=== PATIENT | male | born 1970 | race Caucasian/White ===

== ENCOUNTER 2021-09-12 10:36 | Inpatient (IN) | payer OTHER ==
[~2021-09-12] VITALS: Ht 154.9 cm; Wt 54.0 kg
[2021-09-12] MEDS ORDERED: MIDO2.5T PO (10:59)
[2021-09-12] MEDS ORDERED: SIMV-46 PO (10:59)
[2021-09-12] MEDS ORDERED: SEVE800T8 PO (10:59)
[2021-09-12] MEDS ORDERED: XALAO EACHEYE (10:59)
[2021-09-12] MEDS ORDERED: OMEP40CA20 PO (10:59)
[2021-09-12] MEDS ORDERED: LACT10SO7 PO (10:59)
[2021-09-12] MEDS ORDERED: RENA VITE (10:59)
[2021-09-12] MEDS ORDERED: GLIP5TAB12 PO (10:59)
[2021-09-12] MEDS ORDERED: PIPERACILLIN/TAZ 3.375G PREMIX 50 ML IV ONE (11:15)
[2021-09-12] MEDS ORDERED: VANCOMYCIN 1G PREMIX 200 ML IV ONE (11:15)
[2021-09-12 11:54] LABS: BASOPHILS % 0.7 % (0.0-2.0); EOSINOPHILS % 3.2 % (0.0-5.0); HEMATOCRIT. 31.3 % (42.0-52.0); LYMPHOCYTES % 24.3 % (20.0-50.0); MEAN CORPUSCULAR HEMOGLOBIN 28.4 pg (28.0-32.0); MEAN CORPUSCULAR VOLUME 89.3 fL (80.0-94.0); MEAN PLATELET VOLUME 7.6 fl (7.4-10.4); MONOCYTES % 8.4 % (2.0-8.0); NEUTROPHILS % 63.4 % (40.0-76.0); PLATELET 132 x1000/uL (130-400); RED CELL DISTRIBUTION WIDTH 17.3 % (11.6-14.6)
[2021-09-12 12:02] LABS: CHLORIDE 109 mEq/L (98-107)
[2021-09-12 12:18] LABS: INR 1.2; PARTIAL THROMBOPLASTIN TIME 34.2 sec (23.4-31.0); PROTHROMBIN TIME 12.7 sec (9.6-11.0)
[2021-09-12 12:29] LABS: CLARITY URINE CLEAR (CLEAR); COLOR URINE YELLOW (YELLOW); KETONES URINE NEGATIVE (NEGATIVE); LEUKOCYTE ESTERASE URINE TRACE (NEGATIVE); NITRITE URINE NEGATIVE (NEGATIVE); OCCULT BLOOD URINE NEGATIVE (NEGATIVE); PH URINE 8.5 (4.5-8.0); PROTEIN URINE 2+ (NEGATIVE); SPECIFIC GRAVITY URINE 1.013 (1.005-1.030); UROBILINOGEN URINE 0.2 E.U./dL (0.2-1.0)
[2021-09-12] MEDS ORDERED: IPRATROPIUM/ALBUTEROL 0.5-3(2.5)MG/3ML NEB HHN PRN (14:15)
[2021-09-12] MEDS ORDERED: DOCUSATE SODIUM 100MG CAPSULE PO PRN (14:15)
[2021-09-12] MEDS ORDERED: ONDANSETRON HCL 4MG/2ML INJ IV PRN (14:15)
[2021-09-12] MEDS ORDERED: ACETAMINOPHEN 325MG TABLET PO PRN (14:15)
[2021-09-12] MEDS ORDERED: LORAZEPAM 0.5MG TABLET PO PRN (14:15)
[2021-09-12] MEDS ORDERED: CLONIDINE 0.1MG TABLET PO PRN (14:15)
[2021-09-12] MEDS ORDERED: NALOXONE HCL 0.4MG/ML VIAL IV PRN (14:45)
[2021-09-12] MEDS: ENOXAPARIN 60MG/0.6ML SYR SUBCUT SCH (15:15)
[2021-09-12] MEDS ORDERED: IOHEXOL-350 100 ML BOTTLE ONE (17:02)
[2021-09-12 22:21] LABS: HEPATITIS B SURFACE ANTIGEN NEGATIVE
[2021-09-13] MEDS: ACETAMINOPHEN 325MG TABLET PO PRN (00:41)
[2021-09-13 03:39] LABS: BASOPHILS % 0.8 % (0.0-2.0); EOSINOPHILS % 3.1 % (0.0-5.0); HEMATOCRIT. 28.8 % (42.0-52.0); HEMOGLOBIN. 9.4 g/dL (14.0-18.0); LYMPHOCYTES % 22.6 % (20.0-50.0); MEAN CORPUSCULAR HEMOGLOBIN 29.2 pg (28.0-32.0); MEAN CORPUSCULAR VOLUME 89.1 fL (80.0-94.0); MEAN PLATELET VOLUME 7.3 fl (7.4-10.4); MONOCYTES % 11.4 % (2.0-8.0); NEUTROPHILS % 62.1 % (40.0-76.0); PLATELET 116 x1000/uL (130-400); RED BLOOD CELL COUNT 3.24 mill/uL (4.7-6.1); RED CELL DISTRIBUTION WIDTH 16.7 % (11.6-14.6)
[2021-09-13 03:53] LABS: PHOSPHORUS 3.2 mg/dL (2.5-4.9)
[2021-09-13] MEDS: HYDROCODONE/ACETAMINOPHEN 5/325MG TABLET PO PRN (06:35)
[2021-09-13 08:00] VITALS: BP 132/57
[2021-09-13] MEDS ORDERED: DEXTROSE 50% WATER 50ML SYRINGE IV PRN (09:30)
[2021-09-13 10:15] VITALS: BP 132/57
[2021-09-13] MEDS ORDERED: ASPI-1497 PO (10:39)
[2021-09-13] MEDS ORDERED: T3 PO (10:40)
[2021-09-13] MEDS ORDERED: BRIM10DR16 OP (10:43)
[2021-09-13] MEDS ORDERED: DORZ10DR8 EACHEYE (10:44)
[2021-09-13] MEDS ORDERED: FOLI-43 PO (10:48)
[2021-09-13] MEDS ORDERED: [UNRECOGNIZED DRUG - CODE] IN (10:51)
[2021-09-13] MEDS ORDERED: LACT10SO7 PO (10:52)
[2021-09-13] MEDS ORDERED: LATA2.5D4 EACHEYE (10:53)
[2021-09-13 12:00] VITALS: BP 98/50
[2021-09-13] MEDS: INSULIN LISPRO 100 UNITS/ML SUBCUT SCH ×3 (12:50→21:39)
[2021-09-13] MEDS: BLOOD SUGAR DIAGNOSTIC STRIP TEST SCH ×3 (12:52→21:39)
[2021-09-13] MEDS: ENOXAPARIN 60MG/0.6ML SYR SUBCUT SCH (15:00)
[2021-09-13 16:00] VITALS: BP 129/67
[2021-09-13 20:00] VITALS: BP 130/69
[2021-09-13] MEDS ORDERED: CEFEPIME 1,000 MG in DEXTROSE 5% WATER 50 ML IV SCH (21:00)
[2021-09-14] VITALS (7 sets, daily range): BP systolic 101–149; BP diastolic 54–79
[2021-09-14] MEDS: HYDROCODONE/ACETAMINOPHEN 5/325MG TABLET PO PRN (04:17)
[2021-09-14] MEDS: BLOOD SUGAR DIAGNOSTIC STRIP TEST SCH ×4 (06:40→21:00)
[2021-09-14 06:51] LABS: EOSINOPHILS % 2.8 % (0.0-5.0); HEMATOCRIT. 25.1 % (42.0-52.0); HEMOGLOBIN. 8.3 g/dL (14.0-18.0); LYMPHOCYTES % 25.4 % (20.0-50.0); MEAN CORPUSCULAR HEMOGLOBIN 29.5 pg (28.0-32.0); MEAN CORPUSCULAR VOLUME 89.2 fL (80.0-94.0); MEAN PLATELET VOLUME 7.7 fl (7.4-10.4); MONOCYTES % 10.1 % (2.0-8.0); NEUTROPHILS % 60.7 % (40.0-76.0); PLATELET 108 x1000/uL (130-400); RED BLOOD CELL COUNT 2.81 mill/uL (4.7-6.1); RED CELL DISTRIBUTION WIDTH 16.8 % (11.6-14.6)
[2021-09-14 07:15] LABS: PHOSPHORUS 3.7 mg/dL (2.5-4.9)
[2021-09-14] MEDS: INSULIN LISPRO 100 UNITS/ML SUBCUT SCH ×4 (07:22→21:00)
[2021-09-14] MEDS ORDERED: LIDOCAINE HCL 1% 20ML VIAL (Pyxis) INJ ONE (08:30)
[2021-09-14] MEDS ORDERED: SODIUM BICARBONATE 4% (2.4MEQ) 5ML VIAL IV ONE (08:30)
[2021-09-14] MEDS: LACTULOSE 20G/30ML UDC PO SCH ×2 (13:58→22:00)
[2021-09-14] MEDS: ENOXAPARIN 60MG/0.6ML SYR SUBCUT SCH (15:00)
[2021-09-14] MEDS ORDERED: VANCOMYCIN 750 MG in DEXT 5% WATER 250 ML IV NR (15:00)
[2021-09-14] MEDS: MEROPENEM 1,000 MG in SODIUM CHLORIDE 0.9% 100 ML IV SCH (22:10)
[2021-09-15] VITALS: BP 115/65
[2021-09-15 04:00] VITALS: BP 130/57
[2021-09-15] MEDS: LACTULOSE 20G/30ML UDC PO SCH ×4 (05:41→21:05)
[2021-09-15 06:39] LABS: BASOPHILS % 1.1 % (0.0-2.0); EOSINOPHILS % 3.1 % (0.0-5.0); HEMATOCRIT. 24.6 % (42.0-52.0); LYMPHOCYTES % 22.6 % (20.0-50.0); MEAN CORPUSCULAR VOLUME 89.4 fL (80.0-94.0); MEAN PLATELET VOLUME 8.2 fl (7.4-10.4); MONOCYTES % 10.5 % (2.0-8.0); NEUTROPHILS % 62.7 % (40.0-76.0); PLATELET 98 x1000/uL (130-400); RED BLOOD CELL COUNT 2.75 mill/uL (4.7-6.1); RED CELL DISTRIBUTION WIDTH 17.2 % (11.6-14.6)
[2021-09-15] MEDS: BLOOD SUGAR DIAGNOSTIC STRIP TEST SCH ×4 (07:20→21:05)
[2021-09-15] MEDS: INSULIN LISPRO 100 UNITS/ML SUBCUT SCH ×4 (07:50→21:09)
[2021-09-15 08:00] VITALS: BP 91/43
[2021-09-15] MEDS ORDERED: IOHEXOL-300 100 ML BOTTLE ONE (14:00)
[2021-09-15] MEDS ORDERED: LIDOCAINE HCL 1% 30ML VIAL (10MG/ML) ONE (14:00)
[2021-09-15] MEDS ORDERED: MIDAZOLAM HCL 2 MG/2 ML VIAL ONE (14:00)
[2021-09-15] MEDS ORDERED: FENTANYL CITRATE/PF 50MCG/ML 2ML VIAL ONE (14:00)
[2021-09-15] MEDS ORDERED: IODIXANOL 320MG/ML 100 ML BOTTLE IV ONE (14:01)
[2021-09-15] MEDS: ENOXAPARIN 60MG/0.6ML SYR SUBCUT SCH (15:00)
[2021-09-15] MEDS: CLOPIDOGREL 75MG TABLET PO SCH (15:21)
[2021-09-15 16:00] VITALS: BP 116/59
[2021-09-15 20:00] VITALS: BP 120/53
[2021-09-15] MEDS: MEROPENEM 1,000 MG in SODIUM CHLORIDE 0.9% 100 ML IV SCH (21:08)
[2021-09-16] VITALS: BP 128/54
[2021-09-16 04:00] VITALS: BP 117/51
[2021-09-16 06:53] LABS: BASOPHILS % 0.7 % (0.0-2.0); HEMATOCRIT. 23.7 % (42.0-52.0); HEMOGLOBIN. 7.8 g/dL (14.0-18.0); LYMPHOCYTES % 19.6 % (20.0-50.0); MEAN CORPUSCULAR HEMOGLOBIN 29.6 pg (28.0-32.0); MEAN CORPUSCULAR VOLUME 89.5 fL (80.0-94.0); MEAN PLATELET VOLUME 8.3 fl (7.4-10.4); MONOCYTES % 11.2 % (2.0-8.0); NEUTROPHILS % 65.5 % (40.0-76.0); PLATELET 92 x1000/uL (130-400); RED BLOOD CELL COUNT 2.65 mill/uL (4.7-6.1); RED CELL DISTRIBUTION WIDTH 17.4 % (11.6-14.6)
[2021-09-16] MEDS: INSULIN LISPRO 100 UNITS/ML SUBCUT SCH ×4 (07:50→22:01)
[2021-09-16] MEDS: BLOOD SUGAR DIAGNOSTIC STRIP TEST SCH ×4 (07:50→21:00)
[2021-09-16 08:00] VITALS: BP 120/56
[2021-09-16] MEDS: CLOPIDOGREL 75MG TABLET PO SCH (08:03)
[2021-09-16 08:17] LABS: PHOSPHORUS 5.4 mg/dL (2.5-4.9)
[2021-09-16 12:00] VITALS: BP 133/67
[2021-09-16] MEDS ORDERED: SODIUM POLYSTYRENE SULFONATE 15 G/60 ML BOT PO NR (12:00)
[2021-09-16] MEDS: LACTULOSE 20G/30ML UDC PO SCH ×2 (14:30→22:02)
[2021-09-16] MEDS: ENOXAPARIN 60MG/0.6ML SYR SUBCUT SCH (15:00)
[2021-09-16 16:00] VITALS: BP 150/60
[2021-09-16 20:00] VITALS: BP 150/70
[2021-09-16] MEDS ORDERED: LEVO750T46 PO ×2 (21:22)
[2021-09-16] MEDS: MEROPENEM 1,000 MG in SODIUM CHLORIDE 0.9% 100 ML IV SCH (22:00)
[2021-09-17] VITALS: BP 107/50
[2021-09-17 04:00] VITALS: BP 120/59
[2021-09-17] MEDS: LACTULOSE 20G/30ML UDC PO SCH ×3 (06:00→21:03)
[2021-09-17] MEDS: BLOOD SUGAR DIAGNOSTIC STRIP TEST SCH ×4 (07:20→20:20)
[2021-09-17] MEDS: INSULIN LISPRO 100 UNITS/ML SUBCUT SCH ×4 (07:50→20:56)
[2021-09-17 08:00] VITALS: BP 118/58
[2021-09-17 08:16] LABS: BASOPHILS % 0.5 % (0.0-2.0); EOSINOPHILS % 2.8 % (0.0-5.0); HEMATOCRIT. 22.4 % (42.0-52.0); HEMOGLOBIN. 7.5 g/dL (14.0-18.0); LYMPHOCYTES % 19.1 % (20.0-50.0); MEAN CORPUSCULAR VOLUME 89.6 fL (80.0-94.0); MEAN PLATELET VOLUME 8.1 fl (7.4-10.4); MONOCYTES % 13.6 % (2.0-8.0); PLATELET 88 x1000/uL (130-400); RED CELL DISTRIBUTION WIDTH 17.3 % (11.6-14.6)
[2021-09-17] MEDS: CLOPIDOGREL 75MG TABLET PO SCH (08:24)
[2021-09-17 09:04] LABS: PHOSPHORUS 5.1 mg/dL (2.5-4.9)
[2021-09-17] MEDS: ENOXAPARIN 60MG/0.6ML SYR SUBCUT SCH (15:00)
[2021-09-17] MEDS ORDERED: CLOP-31 MT (15:18)
[2021-09-17 17:46] VITALS: BP 122/66
[2021-09-17 20:00] VITALS: BP 143/69
[2021-09-17] MEDS ORDERED: VANCOMYCIN 500MG PREMIX 100 ML IV NR (20:00)
[2021-09-17] MEDS: MEROPENEM 1,000 MG in SODIUM CHLORIDE 0.9% 100 ML IV SCH (20:20)
[2021-09-18] VITALS (33 sets, daily range): BP systolic 81–147; BP diastolic 33–82
[2021-09-18] MEDS: LACTULOSE 20G/30ML UDC PO SCH ×3 (06:20→22:15)
[2021-09-18] MEDS: INSULIN LISPRO 100 UNITS/ML SUBCUT SCH ×4 (06:26→21:00)
[2021-09-18] MEDS: BLOOD SUGAR DIAGNOSTIC STRIP TEST SCH ×4 (06:26→21:00)
[2021-09-18 07:37] LABS: BASOPHILS % 0.4 % (0.0-2.0); EOSINOPHILS % 1.8 % (0.0-5.0); HEMATOCRIT. 23.4 % (42.0-52.0); HEMOGLOBIN. 7.8 g/dL (14.0-18.0); MEAN CORPUSCULAR HEMOGLOBIN 29.8 pg (28.0-32.0); MEAN CORPUSCULAR VOLUME 89.4 fL (80.0-94.0); MEAN PLATELET VOLUME 7.7 fl (7.4-10.4); MONOCYTES % 13.1 % (2.0-8.0); NEUTROPHILS % 68.7 % (40.0-76.0); PLATELET 86 x1000/uL (130-400); RED BLOOD CELL COUNT 2.62 mill/uL (4.7-6.1); RED CELL DISTRIBUTION WIDTH 17.5 % (11.6-14.6)
[2021-09-18 08:02] LABS: PHOSPHORUS 4.4 mg/dL (2.5-4.9)
[2021-09-18 10:02] LABS: BG BASE EXCESS -3.3 mmol/L (-2.0-2.0); BG CARBOXYHEMOGLOBIN 0.7 % (0.5-1.5); BG DEOXYHEMOGLOBIN 2.3 % (0.0-5.0); BG HCO3 ACT 18.1 mmol/L (22.0-26.0); BG METHEMOGLOBIN 0.2 % (0.0-1.5); BG OXYGEN SATURATION 97.7 % (92.0-98.5); BG OXYHEMOGLOBIN 96.8 % (94.0-97.0); BG PH 7.553 (7.350-7.450); BG PO2 105.8 mmHg (75.0-100.0); BG SAMPLE SITE RIGHT BRACHIAL; BG TOTAL HEMOGLOBIN 8.3 g/dL (12.0-18.0); BG VENT MODE NASAL CANNULA
[2021-09-18] MEDS ORDERED: LACTULOSE 300 ML in WATER FOR IRRIGATION,STERILE 700 ML IR NR (13:00)
[2021-09-18] MEDS: CLOPIDOGREL 75MG TABLET PO SCH (13:45)
[2021-09-18 14:04] LABS: BG BASE EXCESS -4.1 mmol/L (-2.0-2.0); BG CARBOXYHEMOGLOBIN 0.1 % (0.5-1.5); BG DEOXYHEMOGLOBIN 0.8 % (0.0-5.0); BG FRACTION INSPIRED OXYGEN 50; BG HCO3 ACT 18.6 mmol/L (22.0-26.0); BG METHEMOGLOBIN 0.3 % (0.0-1.5); BG OXYGEN SATURATION 99.2 % (92.0-98.5); BG OXYHEMOGLOBIN 98.8 % (94.0-97.0); BG PCO2 25.8 mmHg (35.0-45.0); BG PEEP (cmH2O) 0 cmH2O; BG PH 7.476 (7.350-7.450); BG PO2 206.1 mmHg (75.0-100.0); BG SAMPLE SITE RIGHT RADIAL; BG TOTAL HEMOGLOBIN 8.8 g/dL (12.0-18.0); BG VENT MODE VENT - AC/VC
[2021-09-18] MEDS: ENOXAPARIN 60MG/0.6ML SYR SUBCUT SCH (14:58)
[2021-09-18] MEDS ORDERED: NOREPINEPHRINE 8MG/250ML PMX 250 ML IV PRN (15:30)
[2021-09-18] MEDS ORDERED: NOREPINEPHRINE 8 MG in DEXTROSE 5% WATER 250 ML IV PRN (15:45)
[2021-09-18] MEDS: MEROPENEM 1,000 MG in SODIUM CHLORIDE 0.9% 100 ML IV SCH (20:46)
[2021-09-19] VITALS (41 sets, daily range): BP systolic 75–144; BP diastolic 59–95
[2021-09-19 06:18] LABS: BASOPHILS % 0.6 % (0.0-2.0); EOSINOPHILS % 3.1 % (0.0-5.0); HEMATOCRIT. 26.5 % (42.0-52.0); HEMOGLOBIN. 8.5 g/dL (14.0-18.0); LYMPHOCYTES % 17.2 % (20.0-50.0); MEAN CORPUSCULAR HEMOGLOBIN 28.9 pg (28.0-32.0); MEAN CORPUSCULAR VOLUME 89.7 fL (80.0-94.0); MEAN PLATELET VOLUME 7.6 fl (7.4-10.4); MONOCYTES % 13.8 % (2.0-8.0); NEUTROPHILS % 65.3 % (40.0-76.0); PLATELET 108 x1000/uL (130-400); RED BLOOD CELL COUNT 2.96 mill/uL (4.7-6.1); RED CELL DISTRIBUTION WIDTH 17.8 % (11.6-14.6)
[2021-09-19 06:28] LABS: PHOSPHORUS 6.1 mg/dL (2.5-4.9)
[2021-09-19] MEDS: LACTULOSE 20G/30ML UDC PO SCH ×3 (06:33→21:53)
[2021-09-19] MEDS: INSULIN LISPRO 100 UNITS/ML SUBCUT SCH ×4 (06:33→21:00)
[2021-09-19] MEDS: BLOOD SUGAR DIAGNOSTIC STRIP TEST SCH ×4 (06:33→21:51)
[2021-09-19] MEDS: CLOPIDOGREL 75MG TABLET PO SCH (09:41)
[2021-09-19 09:58] LABS: BG BASE EXCESS -6.2 mmol/L (-2.0-2.0); BG FRACTION INSPIRED OXYGEN 30; BG METHEMOGLOBIN 0.5 % (0.0-1.5); BG OXYHEMOGLOBIN 97.5 % (94.0-97.0); BG PCO2 21.3 mmHg (35.0-45.0); BG PH 7.493 (7.350-7.450); BG PO2 168.2 mmHg (75.0-100.0); BG SAMPLE SITE RIGHT RADIAL; BG TOTAL HEMOGLOBIN 8.3 g/dL (12.0-18.0)
[2021-09-19] MEDS: ACETAMINOPHEN 325MG TABLET PO PRN ×2 (14:18→22:41)
[2021-09-19] MEDS ORDERED: EPOETIN ALFA-EPBX 10,000 UNIT/ML VIAL SUBCUT SCH (21:00)
[2021-09-19] MEDS: MEROPENEM 1,000 MG in SODIUM CHLORIDE 0.9% 100 ML IV SCH (21:36)
[2021-09-20] VITALS (31 sets, daily range): BP systolic 85–143; BP diastolic 46–101
[2021-09-20 05:13] LABS: BASOPHILS % 0.6 % (0.0-2.0); EOSINOPHILS % 6.3 % (0.0-5.0); HEMATOCRIT. 24.9 % (42.0-52.0); LYMPHOCYTES % 17.2 % (20.0-50.0); MEAN CORPUSCULAR HEMOGLOBIN 28.8 pg (28.0-32.0); MEAN CORPUSCULAR VOLUME 89.6 fL (80.0-94.0); MEAN PLATELET VOLUME 7.9 fl (7.4-10.4); MONOCYTES % 13.6 % (2.0-8.0); NEUTROPHILS % 62.3 % (40.0-76.0); PLATELET 90 x1000/uL (130-400); RED BLOOD CELL COUNT 2.78 mill/uL (4.7-6.1); RED CELL DISTRIBUTION WIDTH 17.4 % (11.6-14.6)
[2021-09-20 05:16] LABS: PHOSPHORUS 5.3 mg/dL (2.5-4.9)
[2021-09-20] MEDS: LACTULOSE 20G/30ML UDC PO SCH ×3 (06:00→21:04)
[2021-09-20] MEDS: INSULIN LISPRO 100 UNITS/ML SUBCUT SCH ×4 (07:00→21:07)
[2021-09-20] MEDS: BLOOD SUGAR DIAGNOSTIC STRIP TEST SCH ×4 (07:29→21:07)
[2021-09-20] MEDS: CLOPIDOGREL 75MG TABLET PO SCH (08:43)
[2021-09-20] MEDS ORDERED: VANCOMYCIN 500MG PREMIX 100 ML IV SCH (12:00)
[2021-09-20] MEDS ORDERED: LATANOPROST 0.005% OPHTH DROPS 2.5ML BOTHEYE SCH (21:00)
[2021-09-21] VITALS: BP 117/59
[2021-09-21 04:00] VITALS: BP 128/59
[2021-09-21] MEDS: BLOOD SUGAR DIAGNOSTIC STRIP TEST SCH ×2 (06:05→11:49)
[2021-09-21] MEDS: LACTULOSE 20G/30ML UDC PO SCH ×2 (06:13→14:00)
[2021-09-21] MEDS: INSULIN LISPRO 100 UNITS/ML SUBCUT SCH ×2 (06:15→13:45)
[2021-09-21 06:30] LABS: BASOPHILS % 0.6 % (0.0-2.0); HEMATOCRIT. 23.8 % (42.0-52.0); HEMOGLOBIN. 7.8 g/dL (14.0-18.0); LYMPHOCYTES % 16.1 % (20.0-50.0); MEAN CORPUSCULAR HEMOGLOBIN 29.5 pg (28.0-32.0); MEAN CORPUSCULAR VOLUME 89.9 fL (80.0-94.0); MEAN PLATELET VOLUME 8.3 fl (7.4-10.4); NEUTROPHILS % 65.3 % (40.0-76.0); PHOSPHORUS 6.9 mg/dL (2.5-4.9); PLATELET 100 x1000/uL (130-400); RED BLOOD CELL COUNT 2.64 mill/uL (4.7-6.1); RED CELL DISTRIBUTION WIDTH 17.1 % (11.6-14.6)
[2021-09-21 08:00] VITALS: BP 104/50
[2021-09-21] MEDS: CLOPIDOGREL 75MG TABLET PO SCH (09:14)
[2021-09-21 12:00] VITALS: BP 122/56
[2021-09-21 15:02] VITALS: BP 122/56
== END 2021-09-21 14:20 | disposition home or self-care (01) | DRG 710 ==
LOC: ER 10:40 → MICUSO 12:37 → EDBEDREQTM 12:44 → EDBEDREQ 12:44 → 6WST 09-13 10:17 → MICUNO 09-18 13:00 → 5WST 09-20 16:46
PROVIDERS: ADMIT Internal Medicine; ATTEND Internal Medicine
PROC: 5A1D70Z Performance of Urinary Filtration, Intermittent, Less than 6 Hours Per Day (ICD-10-PCS; 2021-09-12)
PROC: 0W9G30Z Drainage of Peritoneal Cavity with Drainage Device, Percutaneous Approach (ICD-10-PCS; 2021-09-14)
PROC: 047L3ZZ Dilation of Left Femoral Artery, Percutaneous Approach (ICD-10-PCS; principal; 2021-09-15)
PROC: 04HK33Z Insertion of Infusion Device into Right Femoral Artery, Percutaneous Approach (ICD-10-PCS; 2021-09-15)
PROC: 04HL33Z Insertion of Infusion Device into Left Femoral Artery, Percutaneous Approach (ICD-10-PCS; 2021-09-15)
PROC: B41G1ZZ Fluoroscopy of Left Lower Extremity Arteries using Low Osmolar Contrast (ICD-10-PCS; 2021-09-15)
PROC: 047L3DZ Dilation of Left Femoral Artery with Intraluminal Device, Percutaneous Approach (ICD-10-PCS; 2021-09-15)
PROC: 047S3ZZ Dilation of Left Posterior Tibial Artery, Percutaneous Approach (ICD-10-PCS; 2021-09-15)
PROC: 5A1D70Z Performance of Urinary Filtration, Intermittent, Less than 6 Hours Per Day (ICD-10-PCS; 2021-09-15)
PROC: 5A1D70Z Performance of Urinary Filtration, Intermittent, Less than 6 Hours Per Day (ICD-10-PCS; 2021-09-17)
PROC: 0BH17EZ Insertion of Endotracheal Airway into Trachea, Via Natural or Artificial Opening (ICD-10-PCS; 2021-09-18)
PROC: 5A1945Z Respiratory Ventilation, 24-96 Consecutive Hours (ICD-10-PCS; 2021-09-18)
PROC: 5A1D70Z Performance of Urinary Filtration, Intermittent, Less than 6 Hours Per Day (ICD-10-PCS; 2021-09-19)
DX: A41.9 Sepsis, unspecified organism (principal); J96.00 Acute respiratory failure, unspecified whether with hypoxia or hypercapnia; G93.41 Metabolic encephalopathy; E43 Unspecified severe protein-calorie malnutrition; I70.262 Atherosclerosis of native arteries of extremities with gangrene, left leg; K72.90 Hepatic failure, unspecified without coma; I12.0 Hypertensive chronic kidney disease with stage 5 chronic kidney disease or end stage renal disease; E11.52 Type 2 diabetes mellitus with diabetic peripheral angiopathy with gangrene; K70.31 Alcoholic cirrhosis of liver with ascites; E11.22 Type 2 diabetes mellitus with diabetic chronic kidney disease; D64.9 Anemia, unspecified; M86.8X7 Other osteomyelitis, ankle and foot; N18.6 End stage renal disease; Z20.822 Contact with and (suspected) exposure to COVID-19; E11.69 Type 2 diabetes mellitus with other specified complication; K43.9 Ventral hernia without obstruction or gangrene; E21.1 Secondary hyperparathyroidism, not elsewhere classified; F10.10 Alcohol abuse, uncomplicated; Y90.9 Presence of alcohol in blood, level not specified; Z99.2 Dependence on renal dialysis; Z79.899 Other long term (current) drug therapy; Z88.8 Allergy status to other drugs, medicaments and biological substances; Z89.511 Acquired absence of right leg below knee; Z79.84 Long term (current) use of oral hypoglycemic drugs; Z83.3 Family history of diabetes mellitus; Z82.49 Family history of ischemic heart disease and other diseases of the circulatory system; Z87.891 Personal history of nicotine dependence; Z68.22 Body mass index [BMI] 22.0-22.9, adult
CPT/HCPCS: 36415; 36600; 37226; 37228; 49083; 71045; 73630; 75635; 75710; 76705; 80048; 80053; 80202; 81003; 82040; 82140; 82375; 82805; 82962; 83036; 83605; 83615; 83735; 84100; 84145; 85025; 85347; 85651; 86140; 86705; 86709; 86803; 87077; 87186; 87340; 87426; 92610; 93005; 93922; 94003; 97162; 99285; A6261; C1725; C1760; C1769; C1876; C1887; C1893; C1894; J0692; J0885; J1644; J1650; J1815; J2185; J2250; J2543; J3010; J3370; J3490; J7050; J7060; Q9967

== ENCOUNTER 2021-12-01 20:15 | Inpatient (IN) | payer MEDICAID, OTHER ==
[~2021-12-01] VITALS: Ht 160 cm; Wt 72.6 kg
[~2021-12-01 20:15] MED LIST: ASPI-1497 PO; BRIM10DR16 OP; CLOP-31 MT; DORZ10DR8 EACHEYE; FOLI-43 PO; GLIP5TAB12 PO; LACT10SO7 PO; MIDO2.5T PO; OMEP40CA20 PO; SEVE800T8 PO; SIMV-46 PO; XALAO EACHEYE; [UNRECOGNIZED DRUG - CODE] IN
[2021-12-01 22:02] LABS: BASOPHILS % 0.5 % (0.0-2.0); EOSINOPHILS % 10.3 % (0.0-5.0); HEMATOCRIT. 34.2 % (42.0-52.0); HEMOGLOBIN. 10.7 g/dL (14.0-18.0); LYMPHOCYTES % 21.1 % (20.0-50.0); MEAN CORPUSCULAR HEMOGLOBIN 29.6 pg (28.0-32.0); MEAN CORPUSCULAR VOLUME 95.2 fL (80.0-94.0); MONOCYTES % 9.6 % (2.0-8.0); NEUTROPHILS % 58.5 % (40.0-76.0); PLATELET 80 x1000/uL (130-400); RED CELL DISTRIBUTION WIDTH 16.2 % (11.6-14.6)
[2021-12-01 22:05] LABS: CHLORIDE 104 mEq/L (98-107)
[2021-12-01] MEDS ORDERED: PIPERACILLIN/TAZ 3.375G PREMIX 50 ML IV ONE (22:15)
[2021-12-01] MEDS ORDERED: VANCOMYCIN 1G PREMIX 200 ML IV ONE (22:15)
[2021-12-01] MEDS ORDERED: SODIUM CHLORIDE 0.9% 1000ML BAG (SEPSIS BOLUS) IV ONE (22:45)
[2021-12-01] MEDS ORDERED: HALOPERIDOL LACTATE 5MG/ML VIAL IM ONE (23:00)
[2021-12-02] MEDS ORDERED: VANCOMYCIN 1GM PMX (XELLIA) 200 ML IV NR (00:45)
[2021-12-02] MEDS ORDERED: PIPERACILLIN/TAZ 3.375G PREMIX 50 ML IV NR (00:45)
[2021-12-02 10:00] VITALS: BP 140/61
[2021-12-02] MEDS ORDERED: ONDANSETRON HCL 4MG/2ML INJ IV PRN (11:00)
[2021-12-02] MEDS ORDERED: DEXTROSE 50% WATER 50ML SYRINGE IV PRN (11:00)
[2021-12-02] MEDS ORDERED: ACETAMINOPHEN 325MG TABLET PO PRN (11:00)
[2021-12-02 12:00] VITALS: BP 142/75
[2021-12-02] MEDS: BLOOD SUGAR DIAGNOSTIC STRIP TEST SCH ×3 (12:10→21:00)
[2021-12-02] MEDS: INSULIN LISPRO 100 UNITS/ML SUBCUT SCH ×3 (12:40→21:00)
[2021-12-02] MEDS ORDERED: VANCOMYCIN 500MG PREMIX 100 ML IV NR (15:00)
[2021-12-02 16:00] VITALS: BP 117/54
[2021-12-02 17:34] LABS: HEPATITIS B SURFACE ANTIGEN NEGATIVE
[2021-12-02 20:00] VITALS: BP 157/79
[2021-12-02 21:37] LABS: CHLORIDE 109 mEq/L (98-107)
[2021-12-02] MEDS: PIPERACILLIN/TAZOBACTAM 3.375 G in DEXTROSE 5% WATER 50 ML IV SCH (22:18)
[2021-12-03] VITALS: BP 131/57
[2021-12-03] MEDS ORDERED: RIFA550T MT (02:37)
[2021-12-03 04:00] VITALS: BP 100/50
[2021-12-03 06:05] LABS: BASOPHILS % 0.7 % (0.0-2.0); EOSINOPHILS % 9.9 % (0.0-5.0); HEMATOCRIT. 35.1 % (42.0-52.0); HEMOGLOBIN. 11.1 g/dL (14.0-18.0); LYMPHOCYTES % 21.6 % (20.0-50.0); MEAN CORPUSCULAR HEMOGLOBIN 29.5 pg (28.0-32.0); MEAN CORPUSCULAR VOLUME 93.5 fL (80.0-94.0); MEAN PLATELET VOLUME 8.7 fl (7.4-10.4); MONOCYTES % 8.9 % (2.0-8.0); NEUTROPHILS % 58.9 % (40.0-76.0); PLATELET 70 x1000/uL (130-400); RED BLOOD CELL COUNT 3.75 mill/uL (4.7-6.1); RED CELL DISTRIBUTION WIDTH 16.5 % (11.6-14.6)
[2021-12-03] MEDS: INSULIN LISPRO 100 UNITS/ML SUBCUT SCH ×3 (06:24→21:43)
[2021-12-03] MEDS: BLOOD SUGAR DIAGNOSTIC STRIP TEST SCH ×3 (06:24→21:39)
[2021-12-03 06:37] LABS: INR 1.2; PROTHROMBIN TIME 12.9 sec (9.6-11.0)
[2021-12-03 07:23] LABS: PHOSPHORUS 8.2 mg/dL (2.5-4.9)
[2021-12-03 08:00] VITALS: BP 123/56
[2021-12-03] MEDS: PIPERACILLIN/TAZOBACTAM 3.375 G in DEXTROSE 5% WATER 50 ML IV SCH ×2 (09:25→21:40)
[2021-12-03] MEDS ORDERED: VANCOMYCIN 1GM PMX (XELLIA) 200 ML IV SCH (11:00)
[2021-12-03 12:00] VITALS: BP 83/41
[2021-12-03 16:00] VITALS: BP 121/61
[2021-12-03 20:00] VITALS: BP 138/80
[2021-12-04] VITALS (10 sets, daily range): BP systolic 105–172; BP diastolic 60–80
[2021-12-04] MEDS: BLOOD SUGAR DIAGNOSTIC STRIP TEST SCH ×4 (06:36→21:00)
[2021-12-04] MEDS: INSULIN LISPRO 100 UNITS/ML SUBCUT SCH ×4 (06:36→23:19)
[2021-12-04 06:42] LABS: BASOPHILS % 0.8 % (0.0-2.0); EOSINOPHILS % 8.5 % (0.0-5.0); HEMATOCRIT. 32.4 % (42.0-52.0); HEMOGLOBIN. 10.4 g/dL (14.0-18.0); LYMPHOCYTES % 21.7 % (20.0-50.0); MEAN CORPUSCULAR HEMOGLOBIN 29.3 pg (28.0-32.0); MEAN CORPUSCULAR VOLUME 91.6 fL (80.0-94.0); MEAN PLATELET VOLUME 8.8 fl (7.4-10.4); MONOCYTES % 9.4 % (2.0-8.0); NEUTROPHILS % 59.6 % (40.0-76.0); PLATELET 68 x1000/uL (130-400); RED BLOOD CELL COUNT 3.54 mill/uL (4.7-6.1); RED CELL DISTRIBUTION WIDTH 16.4 % (11.6-14.6)
[2021-12-04 07:12] LABS: INR 1.2; PARTIAL THROMBOPLASTIN TIME 38.9 sec (23.4-31.0); PROTHROMBIN TIME 12.9 sec (9.6-11.0)
[2021-12-04 07:16] LABS: CHLORIDE 108 mEq/L (98-107)
[2021-12-04 07:31] LABS: PHOSPHORUS 6.6 mg/dL (2.5-4.9)
[2021-12-04] MEDS: PIPERACILLIN/TAZOBACTAM 3.375 G in DEXTROSE 5% WATER 50 ML IV SCH ×2 (09:25→23:18)
[2021-12-04] MEDS ORDERED: MIDAZOLAM HCL 2 MG/2 ML VIAL ONE (13:36)
[2021-12-04] MEDS ORDERED: LIDOCAINE HCL 1% 20ML VIAL (Pyxis) INJ ONE (13:36)
[2021-12-04] MEDS ORDERED: IODIXANOL 320MG/ML 100 ML BOTTLE IV ONE (13:37)
[2021-12-04] MEDS ORDERED: FENTANYL CITRATE/PF 50MCG/ML 2ML VIAL ONE (13:37)
[2021-12-04] MEDS ORDERED: ASPIRIN/SOD BICARB/CITRIC ACID 324MG TAB EFF ONE (13:40)
[2021-12-04] MEDS ORDERED: ATROPINE SULFATE 1MG/10ML SYR IV PRN (16:00)
[2021-12-04] MEDS ORDERED: ONDANSETRON HCL 4MG/2ML INJ IV PRN (16:00)
[2021-12-04] MEDS ORDERED: IPRATROPIUM/ALBUTEROL 0.5-3(2.5)MG/3ML NEB HHN PRN (16:45)
[2021-12-05] VITALS (7 sets, daily range): BP systolic 101–156; BP diastolic 57–83
[2021-12-05 06:38] LABS: BASOPHILS % 0.5 % (0.0-2.0); EOSINOPHILS % 7.2 % (0.0-5.0); HEMATOCRIT. 31.9 % (42.0-52.0); HEMOGLOBIN. 10.3 g/dL (14.0-18.0); LYMPHOCYTES % 20.6 % (20.0-50.0); MEAN CORPUSCULAR HEMOGLOBIN 29.6 pg (28.0-32.0); MEAN CORPUSCULAR VOLUME 91.7 fL (80.0-94.0); MONOCYTES % 11.8 % (2.0-8.0); NEUTROPHILS % 59.9 % (40.0-76.0); PLATELET 74 x1000/uL (130-400); RED BLOOD CELL COUNT 3.48 mill/uL (4.7-6.1); RED CELL DISTRIBUTION WIDTH 16.4 % (11.6-14.6)
[2021-12-05 07:42] LABS: PHOSPHORUS 8.2 mg/dL (2.5-4.9)
[2021-12-05] MEDS: BLOOD SUGAR DIAGNOSTIC STRIP TEST SCH ×2 (07:54→12:26)
[2021-12-05] MEDS: INSULIN LISPRO 100 UNITS/ML SUBCUT SCH ×2 (07:54→13:00)
[2021-12-05] MEDS: PIPERACILLIN/TAZOBACTAM 3.375 G in DEXTROSE 5% WATER 50 ML IV SCH (09:12)
[2021-12-05] MEDS ORDERED: ASPIRIN 81MG EC TABLET PO SCH (15:00)
== END 2021-12-05 15:10 | disposition home or self-care (01) | DRG 364 ==
LOC: ER 20:15 → MICUSO 23:35 → 8WST 12-02 09:03 → 5EST 12-04 16:30
PROVIDERS: ADMIT Internal Medicine; ATTEND Internal Medicine
PROC: 5A1D70Z Performance of Urinary Filtration, Intermittent, Less than 6 Hours Per Day (ICD-10-PCS; 2021-12-03)
PROC: B41G1ZZ Fluoroscopy of Left Lower Extremity Arteries using Low Osmolar Contrast (ICD-10-PCS; 2021-12-04)
PROC: B41F1ZZ Fluoroscopy of Right Lower Extremity Arteries using Low Osmolar Contrast (ICD-10-PCS; 2021-12-04)
PROC: 30233R1 Transfusion of Nonautologous Platelets into Peripheral Vein, Percutaneous Approach (ICD-10-PCS; 2021-12-04)
PROC: 0QBM0ZZ Excision of Left Tarsal, Open Approach (ICD-10-PCS; principal; 2021-12-05)
PROC: 5A1D70Z Performance of Urinary Filtration, Intermittent, Less than 6 Hours Per Day (ICD-10-PCS; 2021-12-05)
DX: E11.621 Type 2 diabetes mellitus with foot ulcer (principal); L97.529 Non-pressure chronic ulcer of other part of left foot with unspecified severity; E43 Unspecified severe protein-calorie malnutrition; E11.52 Type 2 diabetes mellitus with diabetic peripheral angiopathy with gangrene; D69.6 Thrombocytopenia, unspecified; I12.0 Hypertensive chronic kidney disease with stage 5 chronic kidney disease or end stage renal disease; E83.39 Other disorders of phosphorus metabolism; E83.41 Hypermagnesemia; K70.31 Alcoholic cirrhosis of liver with ascites; E83.51 Hypocalcemia; N18.6 End stage renal disease; E87.1 Hypo-osmolality and hyponatremia; E11.22 Type 2 diabetes mellitus with diabetic chronic kidney disease; J98.11 Atelectasis; G89.29 Other chronic pain; D64.9 Anemia, unspecified; K40.90 Unilateral inguinal hernia, without obstruction or gangrene, not specified as recurrent; K42.9 Umbilical hernia without obstruction or gangrene; I95.9 Hypotension, unspecified; N25.81 Secondary hyperparathyroidism of renal origin; I70.92 Chronic total occlusion of artery of the extremities; Z20.822 Contact with and (suspected) exposure to COVID-19; Z82.49 Family history of ischemic heart disease and other diseases of the circulatory system; Z83.3 Family history of diabetes mellitus; Z99.2 Dependence on renal dialysis; Z89.511 Acquired absence of right leg below knee; Z79.4 Long term (current) use of insulin; Z68.28 Body mass index [BMI] 28.0-28.9, adult; Z88.8 Allergy status to other drugs, medicaments and biological substances; Z79.899 Other long term (current) drug therapy; Z79.82 Long term (current) use of aspirin; Z79.02 Long term (current) use of antithrombotics/antiplatelets
CPT/HCPCS: 36246; 36415; 71045; 73620; 73706; 75710; 76604; 80048; 80053; 80202; 82962; 83605; 83735; 84100; 85025; 85347; 85651; 86140; 86705; 86709; 86803; 86850; 86900; 87070; 87075; 87186; 87340; 87426; 93306; 99291; A6261; C1726; C1760; C1769; C1887; C1893; J0461; J1630; J1644; J1815; J2250; J2543; J3010; J3370; J3490; J7030; J7060; P9034; Q9967

== ENCOUNTER 2022-02-03 20:22 | Inpatient (IN) | payer MEDICAID, OTHER ==
[~2022-02-03] VITALS: Ht 157.5 cm; Wt 68.9 kg
[~2022-02-03 20:22] MED LIST changes: -ASPI-1497 PO; +RIFA550T MT
[2022-02-03 22:25] LABS: BASOPHILS % 0.6 % (0.0-2.0); EOSINOPHILS % 5.1 % (0.0-5.0); HEMATOCRIT. 33.4 % (42.0-52.0); LYMPHOCYTES % 24.3 % (20.0-50.0); MEAN CORPUSCULAR HEMOGLOBIN 29.5 pg (28.0-32.0); MEAN CORPUSCULAR VOLUME 89.5 fL (80.0-94.0); MEAN PLATELET VOLUME 8.1 fl (7.4-10.4); PLATELET 82 x1000/uL (130-400); RED BLOOD CELL COUNT 3.73 mill/uL (4.7-6.1); RED CELL DISTRIBUTION WIDTH 18.3 % (11.6-14.6)
[2022-02-03 22:33] LABS: CHLORIDE 105 mEq/L (98-107)
[2022-02-03 22:34] LABS: INR 1.2; PROTHROMBIN TIME 12.5 sec (9.6-11.0)
[2022-02-03 22:42] LABS: ETHANOL BLOOD < 10 mg/dL
[2022-02-03 22:47] LABS: CLARITY URINE CLEAR (CLEAR); COLOR URINE YELLOW (YELLOW); KETONES URINE NEGATIVE (NEGATIVE); LEUKOCYTE ESTERASE URINE NEGATIVE (NEGATIVE); NITRITE URINE NEGATIVE (NEGATIVE); OCCULT BLOOD URINE TRACE (NEGATIVE); PROTEIN URINE 2+ (NEGATIVE); SPECIFIC GRAVITY URINE 1.014 (1.005-1.030); UROBILINOGEN URINE 0.2 E.U./dL (0.2-1.0)
[2022-02-03] MEDS ORDERED: LACTULOSE 20G/30ML UDC PO NR (23:00)
[2022-02-03 23:07] LABS: *AMPHETAMINES SCREEN URINE NEGATIVE (NEGATIVE); *BARBITURATES SCREEN URINE NEGATIVE (NEGATIVE); *BENZODIAZEPINES SCREEN URINE NEGATIVE (NEGATIVE); *COCAINE SCREEN URINE NEGATIVE (NEGATIVE); CANNABINOID URINE SCREEN NEGATIVE (NEGATIVE); METHADONE URINE SCREEN NEGATIVE (NEGATIVE); OPIATES URINE SCREEN NEGATIVE (NEGATIVE); PHENCYCLIDINE URINE SCREEN NEGATIVE (NEGATIVE)
[2022-02-04 04:25] VITALS: BP 122/74
[2022-02-04] MEDS ORDERED: DEXTROSE 50% WATER 50ML SYRINGE IV PRN (05:30)
[2022-02-04] MEDS ORDERED: CEFTRIAXONE 1 G PREMIX 50 ML IV SCH (05:30)
[2022-02-04 05:37] VITALS: BP 122/74
[2022-02-04] MEDS: LACTULOSE 20G/30ML UDC PO SCH ×3 (06:13→18:00)
[2022-02-04] MEDS: BLOOD SUGAR DIAGNOSTIC STRIP TEST SCH ×4 (07:40→21:07)
[2022-02-04 08:00] VITALS: BP 148/73
[2022-02-04] MEDS ORDERED: CEFTRIAXONE 1,000 MG in DEXTROSE 5% WATER 50 ML IV SCH (08:00)
[2022-02-04] MEDS: INSULIN LISPRO 100 UNITS/ML SUBCUT SCH ×4 (08:10→21:00)
[2022-02-04 09:11] LABS: BASOPHILS % 0.7 % (0.0-2.0); EOSINOPHILS % 5.7 % (0.0-5.0); HEMOGLOBIN. 10.5 g/dL (14.0-18.0); LYMPHOCYTES % 26.2 % (20.0-50.0); MEAN CORPUSCULAR HEMOGLOBIN 29.4 pg (28.0-32.0); MEAN CORPUSCULAR VOLUME 89.8 fL (80.0-94.0); MEAN PLATELET VOLUME 7.7 fl (7.4-10.4); MONOCYTES % 9.2 % (2.0-8.0); NEUTROPHILS % 58.2 % (40.0-76.0); PLATELET 83 x1000/uL (130-400); RED BLOOD CELL COUNT 3.57 mill/uL (4.7-6.1); RED CELL DISTRIBUTION WIDTH 18.1 % (11.6-14.6)
[2022-02-04] MEDS: PANTOPRAZOLE SODIUM 40 MG/VIAL IV SCH (09:13)
[2022-02-04 12:00] VITALS: BP 143/67
[2022-02-04 15:47] LABS: HEPATITIS B SURFACE ANTIGEN NEGATIVE
[2022-02-04 16:00] VITALS: BP 142/64
[2022-02-04 20:00] VITALS: BP 135/62
[2022-02-05] VITALS: BP 146/61
[2022-02-05] MEDS: LACTULOSE 20G/30ML UDC PO SCH ×4 (00:26→17:50)
[2022-02-05 04:00] VITALS: BP 148/76
[2022-02-05] MEDS: BLOOD SUGAR DIAGNOSTIC STRIP TEST SCH ×4 (07:40→20:53)
[2022-02-05 08:00] VITALS: BP 148/67
[2022-02-05] MEDS: INSULIN LISPRO 100 UNITS/ML SUBCUT SCH ×4 (08:10→20:53)
[2022-02-05] MEDS: PANTOPRAZOLE SODIUM 40 MG/VIAL IV SCH (09:07)
[2022-02-05 12:00] VITALS: BP 139/70
[2022-02-05 16:00] VITALS: BP 131/72
[2022-02-05] MEDS ORDERED: LACT10SO3 MT (16:47)
[2022-02-05 20:00] VITALS: BP 140/73
[2022-02-06] VITALS: BP 155/81
[2022-02-06] MEDS: LACTULOSE 20G/30ML UDC PO SCH ×3 (00:16→12:12)
[2022-02-06 04:00] VITALS: BP 142/65
[2022-02-06 06:51] LABS: BASOPHILS % 0.6 % (0.0-2.0); HEMATOCRIT. 34.3 % (42.0-52.0); HEMOGLOBIN. 11.4 g/dL (14.0-18.0); MEAN CORPUSCULAR HEMOGLOBIN 29.9 pg (28.0-32.0); MEAN CORPUSCULAR VOLUME 89.8 fL (80.0-94.0); MEAN PLATELET VOLUME 8.1 fl (7.4-10.4); MONOCYTES % 9.4 % (2.0-8.0); PLATELET 77 x1000/uL (130-400); RED BLOOD CELL COUNT 3.82 mill/uL (4.7-6.1); RED CELL DISTRIBUTION WIDTH 17.7 % (11.6-14.6)
[2022-02-06] MEDS: BLOOD SUGAR DIAGNOSTIC STRIP TEST SCH ×2 (07:14→13:15)
[2022-02-06] MEDS: INSULIN LISPRO 100 UNITS/ML SUBCUT SCH ×2 (07:14→13:10)
[2022-02-06] MEDS: PANTOPRAZOLE SODIUM 40 MG/VIAL IV SCH (09:35)
[2022-02-06 14:34] VITALS: BP 138/62
== END 2022-02-06 15:13 | disposition home health service (06) | DRG 951 ==
LOC: ER 20:22 → 7WST 02-04 00:42 → ENRESERV 02-04 03:19
PROVIDERS: ADMIT Internal Medicine; ATTEND Internal Medicine
PROC: 5A1D70Z Performance of Urinary Filtration, Intermittent, Less than 6 Hours Per Day (ICD-10-PCS; 2022-02-04)
PROC: 0LBW0ZZ Excision of Left Foot Tendon, Open Approach (ICD-10-PCS; principal; 2022-02-06)
PROC: 0LBW0ZZ Excision of Left Foot Tendon, Open Approach (ICD-10-PCS; 2022-02-06)
PROC: 5A1D70Z Performance of Urinary Filtration, Intermittent, Less than 6 Hours Per Day (ICD-10-PCS; 2022-02-06)
DX: K74.60 Unspecified cirrhosis of liver (principal); E43 Unspecified severe protein-calorie malnutrition; D69.6 Thrombocytopenia, unspecified; I12.0 Hypertensive chronic kidney disease with stage 5 chronic kidney disease or end stage renal disease; N18.6 End stage renal disease; S81.011A Laceration without foreign body, right knee, initial encounter; K72.00 Acute and subacute hepatic failure without coma; E11.22 Type 2 diabetes mellitus with diabetic chronic kidney disease; D64.9 Anemia, unspecified; S91.302A Unspecified open wound, left foot, initial encounter; E11.51 Type 2 diabetes mellitus with diabetic peripheral angiopathy without gangrene; E11.65 Type 2 diabetes mellitus with hyperglycemia; F10.21 Alcohol dependence, in remission; S81.012A Laceration without foreign body, left knee, initial encounter; X58.XXXA Exposure to other specified factors, initial encounter; Y93.89 Activity, other specified; Y92.89 Other specified places as the place of occurrence of the external cause; Y99.8 Other external cause status; Z89.511 Acquired absence of right leg below knee; Z99.2 Dependence on renal dialysis; Z68.27 Body mass index [BMI] 27.0-27.9, adult; Z79.899 Other long term (current) drug therapy; Z88.8 Allergy status to other drugs, medicaments and biological substances
CPT/HCPCS: 36415; 71045; 80048; 80053; 80305; 80320; 81003; 82040; 82140; 82962; 83036; 83605; 84134; 84484; 85025; 86705; 86709; 86803; 87340; 92610; 93005; 99291; C1893; C9113; J0696; J1815; J7060; G0480